=== PATIENT | female | born 1970 | race Caucasian/White ===

== ENCOUNTER 2017-04-02 14:26 | Emergency (ER) | payer BC, OTHER ==
[~2017-04-02] VITALS: Ht 162.6 cm; Wt 74.0 kg
[2017-04-02 14:33] VITALS: Ht 162.6 cm; Wt 74.0 kg
[2017-04-02 15:47] LABS: ADD SCAN DIFF NO
[2017-04-02 15:50] LABS: BASOPHILS % 0.2 % (0.0-2.0); EOSINOPHILS % 0.2 % (0.0-7.0); HEMATOCRIT 35.5 % (37.0-47.0); HEMOGLOBIN 12.2 g/dl (12.0-16.0); LYMPHOCYTES # 1.9 10^3/ul (0.8-2.9); LYMPHOCYTES % 18.4 % (15.0-51.0); MEAN CORPUSCULAR HEMOGLOBIN 30.7 pg (29.0-33.0); MEAN CORPUSCULAR HGB CONC 34.4 g/dl (32.0-37.0); MEAN CORPUSCULAR VOLUME 89.4 fl (82.0-101.0); MEAN PLATELET VOLUME 10.6 fl (7.4-10.4); MONOCYTE # 0.7 10^3/ul (0.3-0.9); MONOCYTES % 7.2 % (0.0-11.0); NEUTROPHIL # 7.5 10^3/ul (1.6-7.5); NEUTROPHILS % 73.6 % (39.0-77.0); PLATELET COUNT 303 10^3/UL (140-415); RED BLOOD COUNT 3.97 10^6/ul (4.20-5.40); RED CELL DISTRIBUTION WIDTH 13.2 % (11.5-14.5); WHITE BLOOD COUNT 10.2 10^3/ul (4.8-10.8)
[2017-04-02 16:06] LABS: ADD UMIC YES; URINE BILIRUBIN (Dip) NEGATIVE (NEGATIVE); URINE BLOOD (Dip) 3+ (NEGATIVE); URINE GLUCOSE (Dip) NEGATIVE (NEGATIVE); URINE KETONES (Dip) NEGATIVE (NEGATIVE); URINE LEUKOCYTE ESTERASE (Dip) NEGATIVE (NEGATIVE); URINE NITRITE (Dip) NEGATIVE (NEGATIVE); URINE TOTAL PROTEIN (Dip) 2+ (NEGATIVE); URINE UROBILINOGEN (Dip) 0.2 E.U./dL (0.1-1.0)
[2017-04-02 16:09] LABS: URINE COLOR RED (YELLOW)
[2017-04-02 16:11] LABS: URINE RBCS >200 /HPF (0)
--- NOTE | 2017-04-02 16:24 | RADRPT ---
PROCEDURE: OBSTETRICAL ULTRASOUND WITH ENDOVAGINAL IMAGES CLINICAL INDICATION: Vaginal Bleed () TECHNIQUE: Multiple sonographic images of the pelvis were obtained utilizing a transabdominal and endovaginal technique. The images were reviewed on a PACS workstation. COMPARISON: None. LMP: 01/25/2017 FINDINGS: An irregular - appearing gestational sac is identified at the level of the lower uterine segment/cer vix with mean sac diameter of 1.44 cm, and crown-rump length of 1.25 cm which is consistent with a g estational age of 6 weeks, 5 days . The estimated date of delivery by ultrasound is 11/21/2017 . The estimated gestational age by LMP is 9 weeks, 4 days . The estimated date of delivery by LMP is 11/01/2017 . No heart tones are detected. The right ovary measures 2.8 x 1.8 x 2.3 cm. The left ovary measures the cm. There is normal vascula r flow in 3.4 x 2.2 x 2.5 No significant ovarian lesions are seen. No significant pelvic free fluid is identified. IMPRESSION: An irregular - appearing gestational sac with a pole is detected at the level of the lower katiana rine segment/cervix without detectable cardiac activity. Findings are likely due to early dem ise and in progress. Short-term follow-up ultrasound and serial Beta HCG measurements are recommended for further evaluation. Bilateral ovaries and adnexa are unremarkable. These findings were discussed with Ludwig Zamora over the phone on 4:22 PM . RPTAT: EE Physician Ethan Date Time Electronically viewed and signed by David Temple Physician on 04/02/2017 16:23 /
[2017-04-02] MEDS ORDERED: ACET500C5 PO (16:46)
--- NOTE | 2017-04-02 16:50 | ERD ---
ER Documentation Chief Complaint Date/Time DATE: 04/02/17 TIME: 16:48 Chief Complaint vag bleed today , 8 weeks preg , lmp 01/25/17 HPI This 46-year-old female presents with vaginal bleeding over the last day. She may have had one clot but no noticeable tissue. She denies any pain or cramping. She is a G3 para 1. She denies fevers, vomiting. She has received parenteral care. ROS All systems reviewed and are negative except as per history of present illness. Medications Home Meds Active Scripts Acetaminophen* (Tylophen*) 500 Mg Capsule, 1 CAP PO Q6H Y for PAIN AND OR ELEVATED TEMP, #20 CAP Prov:RICHARD LYNCH MD 04/02/17 PMhx/Soc History of Surgery: Yes (caesarian section) Anesthesia Reaction: No Hx Neurological Disorder: No Hx Cardiac Disorders: No Hx Psychiatric Problems: No Hx Miscellaneous Medical Probl: No Hx Alcohol Use: No Hx Substance Use: No Hx Tobacco Use: No Smoking Status: Never smoker Physical Exam Vitals Vital Signs Date Time Temp Pulse Resp B/P Pulse Ox O2 Delivery O2 Flow Rate FiO2 04/02/17 14:33 98.2 96 18 131/71 98 Physical Exam Const: [] Alert, [id number]. Head: Atraumatic Eyes: Normal Conjunctiva ENT: Normal External Ears, Nose and Mouth. Neck: Full range of motion..~ No meningismus. Resp: Clear to auscultation bilaterally Cardio: Regular rate and rhythm, no murmurs Abd: Soft, non tender, non distended. Normal bowel sounds Skin: No petechiae or rashes Back: No midline or flank tenderness Ext: No cyanosis, or edema Neur: Awake and alert Psych: Normal Mood and Affect Result Diagram: 04/02/17 1530 Results 24 hrs Laboratory Tests Test 04/02/17 15:30 White Blood Count 10.210^3/ul Red Blood Count 3.9710^6/ul Hemoglobin 12.2g/dl Hematocrit 35.5% Mean Corpuscular Volume 89.4fl Mean Corpuscular Hemoglobin 30.7pg Mean Corpuscular Hemoglobin Concent 34.4g/dl Red Cell Distribution Width 13.2% Platelet Count 45765^3/UL Mean Platelet Volume 10.6fl Neutrophils % 73.6% Lymphocytes % 18.4% Monocytes % 7.2% Eosinophils % 0.2% Basophils % 0.2% Nucleated Red Blood Cells % 0.0/100WBC Neutrophils # 7.510^3/ul Lymphocytes # 1.910^3/ul Monocytes # 0.710^3/ul Eosinophils # 0.010^3/ul Basophils # 0.010^3/ul Nucleated Red Blood Cells # 0.010^3/ul Urine Color RED Urine Clarity CLOUDY Urine pH 7.5 Urine Specific [place] 1.015 Urine Ketones NEGATIVE Urine Nitrite NEGATIVE Urine Bilirubin NEGATIVE Urine Urobilinogen 0.2 E.U./dL Urine Leukocyte Esterase NEGATIVE Urine Microscopic RBC >200/HPF Urine Microscopic WBC 0-2/HPF Urine Hemoglobin 3+ Urine Glucose NEGATIVE% Urine Total Protein 2+ Beta HCG, Quantitative 7473.1mIU/ml Procedures/MDM CBC is normal. Quantitative hCG is 7400. Patient is Rh+. Pelvic ultrasound shows a gestational sac with a pole in the lower uterine segment with a heart tones. Findings consistent with a failed demise. in progress. There is no evidence of ectopic , additional acute abnormalities. Patient presents with vaginal bleeding first trimester is likely filled patency of demise. Patient is in no distress and will be discharged home with instructions for 2 day wound check her OB. She shows return sooner for fevers, vomiting, new or worsening symptoms. The patient was stable with no new complaints during the ER course. Clinically, there is no current evidence to suggest meningitis, sepsis, acute abdomen, pneumonia, acute coronary syndrome, pulmonary embolism, or any other emergent condition appearing to require further evaluation or hospitalization. The patient should certainly return for any new or worsening symptoms per the aftercare instructions. They should otherwise follow-up with her primary care doctor for reevaluation this week. Departure Diagnosis: Primary Impression: Vaginal bleeding in patient at less than 20 weeks ges... Condition: Stable Patient Instructions: Bleeding During Early , Missed Miscarriage Referrals: SYED CLAROS MD Additional Instructions: PROBABLAMENTE UN ABORTO. CHEQU CON WING DOCTOR EST SEMANA Y ESTUDIOS OTRO VEZ POSIBLEMENTE. RICHARD LYNCH MD April 02, 2017 16:50
[2017-04-02 17:26] VITALS: BP 122/68; PULSE 68; RESP 18; TEMP 97.9
== END 2017-04-02 17:10 | disposition home or self-care (01) ==
LOC: FTE 14:26
DX: O20.9 Hemorrhage in early pregnancy, unspecified (principal); Z3A.01 Less than 8 weeks gestation of pregnancy
CPT/HCPCS: 36415; 76801; 76817; 81001; 84702; 85025; 86900; 86901; Z7502; 81003